=== PATIENT | male | born 1980 | race Caucasian/White ===

== ENCOUNTER 2018-10-13 10:51 | Emergency (ER) | payer BC ==
[2018-10-13 11:00] VITALS: BP 113/65
--- NOTE | 2018-10-13 11:04 | UC ---
Elbow Pain - HPI Summary HPI Summary: Pt presents to reporting he struck his left elbow approximately 2 hours ago while working Pt with mild discomfort. Pt states he noticed approx 1 hour acute inflammation to the left elbow no pain, no parestehsia. Pt with full ROM Pt unsure last tetanus No open wounds. no anticoagulants. Not immunocompromised Medications reviewed - History of Current Complaint Chief Complaint: UCUpperExtremity Stated Complaint: LT ELLOW INJURY Time Seen by Provider: 10/13/18 11:01 Hx Obtained From: Patient Onset/Duration: Hours Severity Currently: None Pain Intensity: 0 Character: Throbbing - Allergies/Home Medications Allergies/Adverse Reactions: Allergies Allergy/AdvReac Type Severity Reaction Status Date / Time No Known Allergies Allergy Verified 10/13/18 11:00 PMH/Surg Hx/FS Hx/Imm Hx Previously Healthy: Yes - Surgical History Surgical History: Yes Surgery Procedure, Year, and Place: hernia repair - Family History Known Family History: Positive: Non-Contributory - Social History Alcohol Use: Occasionally Substance Use Type: None Smoking Status (MU): Never Smoked Tobacco Review of Systems All Other Systems Reviewed And Are Negative: Yes Skin: Positive: Other - left elbow swelling of skin Physical Exam - Summary Physical Exam Summary: Vital Signs Reviewed: Yes A+Ox3, no distress Eyes: Conjunctiva Clear ENT: Hearing grossly normal neck: supple Respiratory: Positive: No respiratory distress, No accessory muscle use Cardiovascular: skin color reflect adequate perfusion 2+ radial, ulnar CBT < 2 sec Musculoskeletal Exam: Full AROM left shoulder, left elbow full flex/ext, pronate./supinate without pain Pt with markedly swollen olecranon bursa - no tenderness. no open wound no warmth, no reddness, fluctuance full ROM wrist Neurological: Positive: Alert, ambulatory without difficulty + thumb up, a ok, finger spread finger cross Psychological: Positive: Normal Response To proivder Skin: Positive: no rash, no ecchymosis - see MS Triage Information Reviewed: Yes Vital Signs: Initial Vital Signs Temp 98 F 10/13/18 10:57 Pulse 58 10/13/18 10:57 Resp 16 10/13/18 10:57 BP 113/65 10/13/18 10:57 Pulse Ox 100 10/13/18 10:57 Procedures - Procedure Summary Procedure Summary: verbal permission to treat time out completed with RN at bedside pt prepped in usual, sterile fashion anesthetized with 1% lidocaine 2ml Using 18guage need - withdrew 2.5ml of blood - gentle traction removed additional 1ml covered with vasoline gauze and coban pt tolerated well - no pain, no paresthesia reviewed with pt wound care s/s infection return precautions Diagnostics - Radiology No standard instances Radiology Interpretation Completed By: Radiologist - Patient Name: PRUDENCIO RUSSELL Medical Record#: [id number] Ordering Physician: Codie Herron MD Acct.#: [id number] : 1980 Age: 38 Sex: M Location: [facility] Exam Date: 10/13/18 1110 ADM Status: REG ER Order Information: ELBOW LEFT 3+ VWS Accession Number: [id number] CPT: 41780 INDICATION: LEFT elbow pain and swelling following injury 2 hours ago. COMPARISON: No relevant prior exams available on the [facility] [place]. TECHNIQUE: AP, lateral, and oblique views LEFT elbow. REPORT AND IMPRESSION: #. Significant soft tissue swelling superficial to the olecranon process. No subcutaneous emphysema or conspicuous foreign body. Consider potential soft tissue plane hematoma or olecranon bursal fluid collection. #. Normal articular alignment and preserved joint spaces. #. Negative for fat pad displacement to indicate effusion. #. Negative for fracture. < Electronically signed by Jude Joya MD in [place]> 10/13/18 1142 Dictated By: Jude Joya MD Dictated Date/Time: 10/13/18 1142 Transcribed Date/Time: 06/02 1140 Copy to: CC:Codie Herron MD; Luz Garnica MD Imaging - [facility] - [place] [facility] [address] [address] ph ([phone]) ph ) ph ([phone]) This report is only to be considered final once signed by the Provider(s ) as displayed in the "<Electronically Signed by >" field (s). Absence of a signature indicates the report is in a draft status and still needs to be finalized. In the event this document was created by someone other than the signing Provider, the individual initiating the document will be listed in the "Entered by:" or "Dictated by:" ruggiero. 1 of 1 Elbow Pain Course/Dx - Course Course Of Treatment: Pt presents with an acutely traumatic olecranon bursitis approx 2-3 hours ago with direct trauma Pt RHD Full AROM without pain called PCP - tdap 08/02/11 [facility] 06/19/15 d/w pt options: compress, drain, monitor after discussion - will drain Will image - if not chip fx will drain ,apply compression motrin/apap cephalexin strict return precautions Pt comfortable and in agreement with pain - Differential Dx/Diagnosis Provider Diagnosis: Traumatic bursitis Discharge - Sign-Out/Discharge Documenting (check all that apply): Patient Departure All imaging exams completed and their final reports reviewed: No Studies - Discharge Plan Condition: Stable Disposition: HOME Prescriptions: Cephalexin CAP* [Keflex CAP*] 500 mg PO TID #21 cap Patient Education Materials: Elbow Bursitis (ED) Referrals: Luz Garnica MD [Primary Care Provider] - Additional Instructions: - Keep area clean and covered. Okay to cover the wound with a thin layer of antibiotic ointment and a bandage daily - anticipate oozing from the wound today , this is normal - Take antibiotics as prescribed until gone - Okay to alternate ibuprofen (Advil, Motrin) 600mg and tylenol every 3hours for pain. Take with food. -monitor for signs of infection - reddness, red streaking, increased pain, fever , odor, or any other concerns you should be re-evaluated - Contact your doctor or return with questions or concerns - Billing Disposition and Condition Condition: STABLE Disposition: Home
[2018-10-13] MEDS ORDERED: Lidocaine 1% MPF ** 5 ML VIAL INJ ONE (11:15)
[2018-10-13] MEDS ORDERED: Cephalexin CAP* 500 MG PO ONE (12:01)
== END 2018-10-13 12:12 | disposition home or self-care (01) ==
LOC: UCEAST 10:51
DX: M71.522 Other bursitis, not elsewhere classified, left elbow (principal)
CPT/HCPCS: 10060; 99202; A9270-GY; G0463